=== PATIENT | male | born 1955 | race Caucasian/White ===

== ENCOUNTER 2021-04-17 10:47 | Emergency (ER) | payer MEDICARE, OTHER ==
[~2021-04-17] VITALS: Ht 165.1 cm; Wt 72.0 kg
[~2021-04-17 10:47] MED LIST: PRILOSEC OTC20 MG OR; ZESTRIL/PRINIVI20 MG OR
[2021-04-17 13:02] VITALS: BP 142/75
== END 2021-04-17 13:12 | disposition home or self-care (01) ==
LOC: ED 10:47
PROC: 0HQGXZZ Repair Left Hand Skin, External Approach (ICD-10-PCS; principal; 2021-04-17)
DX: S61.412A Laceration without foreign body of left hand, initial encounter (principal); I10 Essential (primary) hypertension; F17.200 Nicotine dependence, unspecified, uncomplicated; W45.8XXA Other foreign body or object entering through skin, initial encounter; Y93.89 Activity, other specified

== ENCOUNTER 2021-09-03 07:55 | Day surgery (SDC) | payer MEDICARE, OTHER ==
[~2021-09-03 07:55] MED LIST changes: +AMITRIPTYLINE100 M1 PO; +GABAPENTIN100 MG PO; +KAPSPARGO SPRIN50 MG PO; +MEMANTINE HYDRO14 MG PO; +METHOCARBAMOL500 MG PO; +PROAIR HFA IN; +SYNTHROID25 MCG PO; +TRAMADOL HCL50 MG PO
[2021-09-03] MEDS ORDERED: CHANTIX PO (08:16)
[2021-09-03 09:53] VITALS: BP 138/74
== END 2021-09-03 10:12 | disposition home or self-care (01) ==
LOC: ENDO 07:55
PROVIDERS: ATTEND Surgery
PROC: 0DBM8ZX Excision of Descending Colon, Via Natural or Artificial Opening Endoscopic, Diagnostic (ICD-10-PCS; principal; 2021-09-03)
DX: Z12.11 Encounter for screening for malignant neoplasm of colon (principal); D12.4 Benign neoplasm of descending colon; I10 Essential (primary) hypertension; F17.210 Nicotine dependence, cigarettes, uncomplicated

== ENCOUNTER 2022-12-27 06:33 | Day surgery (SDC) | payer MEDICARE, OTHER ==
[~2022-12-27] VITALS: Ht 160 cm; Wt 78.5 kg
[~2022-12-27 06:33] MED LIST changes: +CHANTIX PO; +LOPRESSOR50 M1 PO; +VITAMIN C500 M6 PO; +VITAMIN D-32000 UNI1 PO
[2022-12-27 09:55] VITALS: BP 130/77
== END 2022-12-27 09:45 | disposition home or self-care (01) ==
LOC: ORM 06:33
PROVIDERS: ATTEND Internal Medicine Gastroenterology
PROC: 0D738ZZ Dilation of Lower Esophagus, Via Natural or Artificial Opening Endoscopic (ICD-10-PCS; principal; 2022-12-27)
PROC: 0DB38ZX Excision of Lower Esophagus, Via Natural or Artificial Opening Endoscopic, Diagnostic (ICD-10-PCS; 2022-12-27)
PROC: 0DB28ZX Excision of Middle Esophagus, Via Natural or Artificial Opening Endoscopic, Diagnostic (ICD-10-PCS; 2022-12-27)
DX: K22.2 Esophageal obstruction (principal); K21.00 Gastro-esophageal reflux disease with esophagitis, without bleeding; K29.70 Gastritis, unspecified, without bleeding; K76.6 Portal hypertension; K31.89 Other diseases of stomach and duodenum; I12.9 Hypertensive chronic kidney disease with stage 1 through stage 4 chronic kidney disease, or unspecified chronic kidney disease; N18.30 Chronic kidney disease, stage 3 unspecified; D45 Polycythemia vera; E03.9 Hypothyroidism, unspecified; E78.5 Hyperlipidemia, unspecified; D63.1 Anemia in chronic kidney disease; Z79.899 Other long term (current) drug therapy